=== PATIENT | female | born 1950 | race Caucasian/White ===

== ENCOUNTER 2022-02-17 10:26 | Outpatient (CLI) | payer MEDICARE | END 2022-02-17 10:27 | disposition home or self-care (01) | LOC: CSHMRI 10:26 | PROVIDERS: ATTEND Psychiatry & Neurology Neurology | DX: G25.81 Restless legs syndrome (principal); Z98.890 Other specified postprocedural states; M47.812 Spondylosis without myelopathy or radiculopathy, cervical region; M48.03 Spinal stenosis, cervicothoracic region | CPT/HCPCS: 72141 ==

== ENCOUNTER 2022-04-01 08:46 | Outpatient (CLI) | payer MEDICARE | END 2022-04-01 08:47 | disposition home or self-care (01) | LOC: CSHCT 08:46 | PROVIDERS: ATTEND Radiology Radiation Oncology | DX: C79.31 Secondary malignant neoplasm of brain (principal); R59.0 Localized enlarged lymph nodes | CPT/HCPCS: 71260; 74177; 82565 ==